=== PATIENT | female | born 1990 | race Caucasian/White ===

== ENCOUNTER → 2025-05-20 16:45 | Outpatient (BNVA) | payer OTHER, SELFPAY | PROVIDERS: PCP Nurse Practitioner Family; Visit Provider Emergency Medicine | DX: S62.396A Other fracture of fifth metacarpal bone, right hand, initial encounter for closed fracture (principal); X58.XXXA Exposure to other specified factors, initial encounter | CPT/HCPCS: 73130 ==

== ENCOUNTER → 2025-05-25 08:35 | Outpatient (BNVA) | payer OTHER, SELFPAY | PROVIDERS: PCP Nurse Practitioner Family; Visit Provider Orthopaedic Surgery | DX: S62.396A Other fracture of fifth metacarpal bone, right hand, initial encounter for closed fracture (principal); W22.03XA Walked into furniture, initial encounter | CPT/HCPCS: 73130 ==

== ENCOUNTER → 2025-05-29 08:13 | Outpatient (BNVA) | payer OTHER, SELFPAY | PROVIDERS: PCP Nurse Practitioner Family; Visit Provider Orthopaedic Surgery | DX: S62.366D Nondisplaced fracture of neck of fifth metacarpal bone, right hand, subsequent encounter for fracture with routine healing (principal); X58.XXXD Exposure to other specified factors, subsequent encounter | CPT/HCPCS: 73130 ==